=== PATIENT | male | born 1960 | race Caucasian/White ===

== ENCOUNTER 2017-06-06 12:08 | Outpatient (CLI) | payer BC ==
--- NOTE | 2017-06-06 14:17 | Diagnostic Imaging Report ---
Indication: Dyspnea Comparison: None 2 views of the chest obtained. The interstitial of the lung is prominent which may be more technically related. Doubt interstitial disease or infiltrate. Heart is normal in size. Bones are unremarkable. IMPRESSION: No acute disease
== END 2017-06-06 14:08 | disposition home or self-care (01) ==
LOC: RAD 12:08
DX: R05 Cough (principal); R06.00 Dyspnea, unspecified
CPT/HCPCS: 71046